=== PATIENT | female | born 1940 | race Caucasian/White ===

== ENCOUNTER 2016-04-10 22:22 | Emergency (ER) | payer MEDICARE, BC ==
[~2016-04-10] VITALS: Wt 83.5 kg
--- NOTE | 2016-04-10 22:57 | ERD ---
ER Documentation Chief Complaint Date/Time DATE: 04/10/16 TIME: 22:54 Chief Complaint states feels low blood sugar at home HPI Took her nightly dose of oral diabetic agent, she does not know the name of it. She took the medication at 7 PM tonight but did not eat dinner afterwards. About 30 minutes ago she started feeling weak, shaky, felt like her sugar was off. Her blood glucose here is 42. She had no headache no chest pain or shortness of breath no abdominal pain nausea vomiting diarrhea. No focal neurological complaints such as numbness weakness speech change said her tongue was a little tingly but now is resolved. No blurry vision no syncope ROS All systems reviewed and are negative except as per history of present illness. Allergies Allergies: Coded Allergies: No Known Drug Allergies (Verified Allergy, Unknown, 04/10/16) FmHx Family History: No coronary disease Physical Exam Vitals Vital Signs Date Time Temp Pulse Resp B/P Pulse Ox O2 Delivery O2 Flow Rate FiO2 04/10/16 22:29 97.9 94 20 173/74 99 Physical Exam Const: Well-developed, well-nourished Head: Atraumatic, normocephalic Eyes: Normal Conjunctiva, PERRLA, EOMI, normal sclera, no nystagmus ENT: Normal External Ears, Nose and Mouth, moist mucus membranes. Neck: Full range of motion. No meningismus, no lymphadenopathy. Resp: Clear to auscultation bilaterally, no wheezing, rhonchi, rales Cardio: Regular rate and rhythm, no murmurs, S1 S2 present Abd: Soft, non tender x 4, non distended. Normal bowel sounds, no guarding or rebound, no pulsitile abdominal masses or bruits Skin: No petechiae or rashes, no ecchymosis , no maculopapular rash Back: No midline or flank tenderness Ext: No cyanosis, or edema, FROM x 4, normal inspection, neurovascularly intact x 4 Neur: Awake and alert, STR 5/5 x 4, sensation intact x 4, no focal findings, cerebellum intact Psych: Normal Mood and Affect Results 24 hrs Laboratory Tests Test 04/10/16 22:39 Bedside Glucose 42mg/dL Procedures/[facility] Fingerstick blood glucose here is 42 She was given cranberry juice, milk, food tray Watch her for some time to ensure that her blood sugars stabilizing and discharge home Departure Diagnosis: Primary Impression: Hypoglycemia Condition: Stable Patient Instructions: Hypoglycemia, Oral Diabetic Medicine VANESA FLORES DO Apr 10, 2016 22:57
[2016-04-10] MEDS ORDERED: DEXTROSE 50% 50 ML SYRINGE IV STA (23:46)
[2016-04-11] MEDS ORDERED: DEXTROSE 50% 50 ML SYRINGE IV STA (01:50)
[2016-04-11 02:04] VITALS: BP 127/89; PULSE 86; RESP 16
== END 2016-04-11 02:06 | disposition home or self-care (01) ==
LOC: E/R 22:22
DX: E11.649 Type 2 diabetes mellitus with hypoglycemia without coma (principal); I10 Essential (primary) hypertension; Z79.84 Long term (current) use of oral hypoglycemic drugs
CPT/HCPCS: 82962; 96374; 96376